=== PATIENT | male | born 1995 | race Two or more races ===

== ENCOUNTER 2017-10-23 12:16 | Emergency (ER) | payer OTHER ==
[2017-10-23] MEDS: NORCO, ANEXSIA 5/325MG TABLET (HYDROcodone/ACETAMINOPHEN) PO (13:40)
== END 2017-10-23 13:45 | disposition home or self-care (01) ==
LOC: M ED 12:16
DX: S93.402A Sprain of unspecified ligament of left ankle, initial encounter (principal); X50.0XXA Overexertion from strenuous movement or load, initial encounter; Y92.018 Other place in single-family (private) house as the place of occurrence of the external cause; F17.210 Nicotine dependence, cigarettes, uncomplicated
CPT/HCPCS: 73610

== ENCOUNTER 2018-01-18 11:13 | Emergency (ER) | payer OTHER | END 2018-01-18 12:09 | disposition home or self-care (01) | LOC: M ED 11:13 | DX: J02.9 Acute pharyngitis, unspecified (principal) | CPT/HCPCS: 99282 ==

== ENCOUNTER 2018-07-05 21:17 | Emergency (ER) | payer OTHER ==
[~2018-07-05] VITALS: Ht 175.3 cm; Wt 81.8 kg
[~2018-07-05 21:17] MED LIST: IBUP80TA PO
[2018-07-05 21:18] VITALS: BP 119/70
--- NOTE | 2018-07-05 21:58 | REP ---
Clinical: Trauma. Technique: AP, lateral, bilateral oblique views left first digit . Findings: The osseous structures and joint spaces are intact and normal. There is no evidence for acute fracture or dislocation. Surrounding soft tissues are unremarkable. No subcutaneous emphysema or radiodense foreign body. Impression: No acute fracture or dislocation. Electronically Signed by Praveen Harris MD 07/05/2018 09:49 P
== END 2018-07-05 22:46 | disposition home or self-care (01) ==
LOC: M ED 21:17
DX: S63.602A Unspecified sprain of left thumb, initial encounter (principal); W23.0XXA Caught, crushed, jammed, or pinched between moving objects, initial encounter; Y92.310 Basketball court as the place of occurrence of the external cause; Y93.67 Activity, basketball

== ENCOUNTER 2018-11-14 07:44 | Emergency (ER) | payer OTHER ==
[2018-11-14] MEDS ORDERED: NS 1,000 ML IV ONE ×2 (08:00→10:15)
[2018-11-14 08:50] LABS: BASO % 0.2 % (0.0-1.0); EOS # 0.2 10^3/uL (0.0-0.50); EOS % 3.1 % (0.0-3.0); HEMATOCRIT 42.9 % (42.0-52.0); HEMOGLOBIN 15.2 g/dl (13.5-17.5); LYMPH # 1.8 10^3/uL (1.5-6.5); LYMPH % 32.1 % (24.0-44.0); MEAN CORPUSCULAR HEMOGLOBIN 31.3 pg (27.0-33.0); MEAN CORPUSCULAR HGB CONC 35.4 g/dl (32.0-36.5); MEAN CORPUSCULAR VOLUME 88.3 fl (80.0-96.0); MONO # 0.3 10^3/uL (0.0-0.8); MONO % 5.9 % (0.0-5.0); NEUTROPHILS # 3.3 10^3/uL (1.8-7.7); NEUTROPHILS % 58.5 % (36.0-66.0); PLATELET COUNT, AUTOMATED 212 10^3/uL (150-450); RED BLOOD COUNT 4.86 10^6/uL (4.30-6.10); WHITE BLOOD COUNT 5.6 10^3/uL (4.0-10.0)
--- NOTE | 2018-11-14 09:16 | REP ---
CHEST, TWO VIEWS: There is no evidence of acute infiltrate. No pleural effusion is seen. The heart is normal in size. The mediastinal silhouette is unremarkable. The visualized osseous structures are intact. IMPRESSION: No acute pulmonary disease. Electronically Signed by Felix Saldana MD 11/14/2018 07:15 P
[2018-11-14 09:19] LABS: ALBUMIN 3.8 GM/DL (3.2-5.2); ALT/SGPT 22 U/L (12-78); BILIRUBIN,TOTAL 0.9 MG/DL (0.2-1.0); BLOOD UREA NITROGEN 21 MG/DL (7-18); CALCIUM LEVEL 8.8 MG/DL (8.5-10.1); CARBON DIOXIDE LEVEL 28 MEQ/L (21-32); CHLORIDE LEVEL 106 MEQ/L (98-107); CREATININE FOR GFR 1.12 MG/DL (0.70-1.30); GLOMERULAR FILTRATION RATE > 60.0 (>60); GLUCOSE, FASTING 90 MG/DL (70-100); POTASSIUM SERUM 3.8 MEQ/L (3.5-5.1); SODIUM LEVEL 140 MEQ/L (136-145); TOTAL PROTEIN 7.4 GM/DL (6.4-8.2)
[2018-11-14 10:33] VITALS: O2SAT 100
[2018-11-14 11:36] VITALS: BP 112/51
--- NOTE | 2018-11-14 19:50 | ECGEPIP ---
[facility] - ED Test Date: 2018-11-14 Pat Name: CYNTHIA MEADOWS Department: Room: - Gender: Male Lapel Padder: JACI : 1995 Requested By: Darcie Spence Order Number: [id number] Reading MD: Ray Velez Measurements Intervals [place] Rate: 60 P: 52 OR: 208 QRS: 50 QRSD: 87 T: 22 QT: 368 QTc: 370 Interpretive Statements SINUS RHYTHM POSSIBLE LEFT ATRIAL ENLARGEMENT BENIGN EARLY REPOLARIZATION NO PRIORS FOR COMPARISON Electronically Signed on 11-14-2018 19:49:58 EDT by Ray Velez
== END 2018-11-14 11:38 | disposition home or self-care (01) ==
LOC: EDBD 07:44 → M ED 07:44
DX: R55 Syncope and collapse (principal)